=== PATIENT | male | born 1965 | race African-American/Black ===

== ENCOUNTER 2019-05-09 05:03 | Inpatient (IN) ==
[2019-04-27 10:17] LABS: Basophils % 0.3 % (0.0-0.8); Eosinophils # 0.5 10*3/uL (0.0-0.87); Eosinophils % 5.2 % (0.00-10.9); Hematocrit 38.9 VOL% (42.0-52.0); Hemoglobin 13.6 GM/DL (14.0-18.0); Immature Granulocytes % 0.5 %; Immature Granulocytes Absolute 0.05 #; Lymphocytes # 1.9 10*3/uL (1.4-4.0); Lymphocytes % 19.4 % (21.2-54.2); Mean Corpuscular Volume 81.9 FL (87-102); Mean Platelet Volume 10.9 FL (9.6-12.0); Monocytes % 5.8 % (1.7-12.7); Neutrophils % 68.8 % (38.7-73.9); Platelet Count 256 T/CUMM (130-400); Red Blood Count 4.75 MC/CUMM (3.8-5.5); Red Cell Distribution Width 14.5 % (9.3-17.3); White Blood Count 9.6 T/CUMM (4-12)
[2019-04-27 10:31] LABS: Apearance,Urine CLEAR (Clear); Bilirubin,Urine Negative (Negative); Blood, Urine Moderate mg/dL (Negative); Glucose,Urine (UA) 150 mg/dL (Negative); Ketones,Urine Negative (Negative); Mucus,Urine Occasional /LPF (Occasional); Nitrite,Urine Negative (Negative); Protein,Urine Negative; RBC,Urine 1 /HPF (0-4); Urine Color Yellow (Yellow); Urine Urobilinogen < 2.0 EU/DL (0.2-1.0); WBC,Urine <1 /HPF (0-6)
[2019-04-27 10:52] LABS: Calcium 9.8 MG/DL (8.5-10.1); Osmolality,Calculated 282.7 MOS/KG (273-304)
[2019-05-09] MEDS ORDERED: GABAPENTIN 400 MG CAPSULE PO ONE (06:00)
[2019-05-09] MEDS ORDERED: FAMOTIDINE 20 MG TABLET PO ONE (06:00)
[2019-05-09] MEDS ORDERED: ACETAMINOPHEN 500 MG TABLET PO ONE (06:00)
[2019-05-09] MEDS ORDERED: cefTRIAXone 1,000 MG in SYRINGE 1 EACH IV ONE (06:00)
[2019-05-09] MEDS ORDERED: ALVIMOPAN 12 MG CAPSULE PO ONE (06:00)
[2019-05-09] MEDS ORDERED: DIAZEPAM 5 MG TABLET PO ONE (06:00)
[2019-05-09] MEDS ORDERED: FAMOTIDINE 20 MG TABLET ONE (06:30)
[2019-05-09] MEDS ORDERED: cefTRIAXone 1,000 MG VIAL ONE (06:30)
[2019-05-09] MEDS ORDERED: DIAZEPAM 5 MG TABLET ONE (06:30)
[2019-05-09] MEDS ORDERED: ALVIMOPAN 12 MG CAPSULE ONE (06:30)
[2019-05-09] MEDS ORDERED: GABAPENTIN 400 MG CAPSULE ONE (06:30)
[2019-05-09] MEDS ORDERED: ACETAMINOPHEN 500 MG TABLET ONE (06:30)
[2019-05-09] MEDS ORDERED: LACTATED RINGERS 1,000 ML IV SCH (06:30)
[2019-05-09] MEDS ORDERED: ONDANSETRON 4 MG/2 ML VIAL IV PRN ×2 (09:13→10:21)
[2019-05-09] MEDS ORDERED: diphenhydrAMINE 50 MG/1 ML VIAL IV PRN (09:13)
[2019-05-09 09:42] LABS: Apearance,Urine Slightly Hazy (Clear); Bacteria,Urine Occasional /HPF (Few); Bilirubin,Urine Negative (Negative); Blood, Urine Moderate mg/dL (Negative); Glucose,Urine (UA) Negative (Negative); Ketones,Urine Negative (Negative); Mucus,Urine Occasional /LPF (Occasional); Nitrite,Urine Negative (Negative); Protein,Urine Negative; RBC,Urine 4 /HPF (0-4); Squamous Epithelial Cell,Urine Occasional /HPF (0-10); Urine Color Yellow (Yellow); Urine Specific Gravity 1.009 (1.001-1.035); Urine Urobilinogen < 2.0 EU/DL (0.2-1.0); WBC,Urine 2 /HPF (0-6)
[2019-05-09] MEDS ORDERED: SEVOFLURANE 1 UNIT/15 MINUTE INH ONE (09:44)
[2019-05-09] MEDS ORDERED: PROPOFOL 200 MG/20 ML VIAL IV ONE (09:44)
[2019-05-09] MEDS ORDERED: LIDOCAINE 100 MG/5 ML SYRINGE ONE (09:44)
[2019-05-09] MEDS ORDERED: SODIUM CHLORIDE 0.9% 200 ML IV ONE (09:45)
[2019-05-09] MEDS ORDERED: fentaNYL 100 MCG/2 ML VIAL ONE (09:45)
[2019-05-09] MEDS ORDERED: ROCURONIUM 100 MG/10 ML VIAL IV ONE (09:45)
[2019-05-09] MEDS ORDERED: MIDAZOLAM 2 MG/2 ML VIAL ONE (09:45)
[2019-05-09] MEDS ORDERED: ONDANSETRON 4 MG/2 ML VIAL ONE ×2 (09:45→10:17)
[2019-05-09] MEDS ORDERED: PHENYLEPHRINE 10 MG/1 ML VIAL IV ONE (09:45)
[2019-05-09] MEDS ORDERED: NEOSTIGMINE 10 MG/10 ML VIAL ONE (09:45)
[2019-05-09] MEDS ORDERED: PHENYLEPHRINE 1 MG/10 ML SYRINGE IV ONE (09:45)
[2019-05-09] MEDS ORDERED: GLYCOPYRROLATE 0.4 MG/2 ML VIAL ONE ×2 (09:45)
[2019-05-09] MEDS ORDERED: SODIUM CHLORIDE 0.9% 1,000 ML IV ONE (09:46)
[2019-05-09] MEDS: HYDROmorphone PCA 30 MG/30 ML SYRINGE IV SCH (10:00)
[2019-05-09] MEDS: HYDROmorphone 2 MG/1 ML VIAL IV PRN ×2 (10:16→10:35)
[2019-05-09] MEDS ORDERED: HYDROmorphone 2 MG/1 ML VIAL ONE (10:17)
[2019-05-09] MEDS: SODIUM CHLORIDE 0.9% 1,000 ML IV SCH ×2 (11:42→20:21)
[2019-05-09] MEDS: amLODIPine 5 MG TABLET PO SCH (16:28)
[2019-05-09] MEDS: ALVIMOPAN 12 MG CAPSULE PO SCH (21:44)
[2019-05-09] MEDS: metFORMIN 500 MG TABLET PO SCH (21:45)
[2019-05-09] MEDS: ATORVASTATIN 10 MG TABLET PO SCH (21:46)
[2019-05-10 05:14] LABS: Basophils % 0.2 % (0.0-0.8); Hematocrit 35.9 VOL% (42.0-52.0); Hemoglobin 12.5 GM/DL (14.0-18.0); Immature Granulocytes % 0.7 %; Immature Granulocytes Absolute 0.11 #; Lymphocytes # 1.3 10*3/uL (1.4-4.0); Lymphocytes % 8.3 % (21.2-54.2); Mean Corpuscular HGB Conc 34.8 GM/DL (32-36); Mean Corpuscular Volume 82.2 FL (87-102); Mean Platelet Volume 10.9 FL (9.6-12.0); Monocytes % 8.9 % (1.7-12.7); Neutrophils % 81.9 % (38.7-73.9); Platelet Count 282 T/CUMM (130-400); Red Blood Count 4.37 MC/CUMM (3.8-5.5); Red Cell Distribution Width 14.7 % (9.3-17.3); White Blood Count 16.1 T/CUMM (4-12)
[2019-05-10] MEDS: SODIUM CHLORIDE 0.9% 1,000 ML IV SCH (05:31)
[2019-05-10 05:46] LABS: Calcium 8.3 MG/DL (8.5-10.1); Osmolality,Calculated 278.8 MOS/KG (273-304)
[2019-05-10] MEDS ORDERED: LISINOPRIL 20 MG TABLET PO SCH (09:00)
[2019-05-10] MEDS: ALVIMOPAN 12 MG CAPSULE PO SCH ×2 (09:21→21:08)
[2019-05-10] MEDS: metFORMIN 500 MG TABLET PO SCH (09:21)
[2019-05-10] MEDS: HYDROmorphone PCA 30 MG/30 ML SYRINGE IV SCH (11:05)
[2019-05-10] MEDS ORDERED: oxyCODONE/ACETAMINOPHEN 5-325 MG TABLET PO PRN (12:55)
[2019-05-10] MEDS: glyBURIDE 5 MG TABLET PO SCH (17:12)
[2019-05-10] MEDS: amLODIPine 5 MG TABLET PO SCH (17:12)
[2019-05-10] MEDS: oxyCODONE/ACETAMINOPHEN 5-325 MG TABLET PO PRN (17:30)
[2019-05-10] MEDS: ATORVASTATIN 10 MG TABLET PO SCH (21:08)
[2019-05-11 05:11] LABS: Calcium 9.5 MG/DL (8.5-10.1); Osmolality,Calculated 276.5 MOS/KG (273-304)
[2019-05-11] MEDS: ALVIMOPAN 12 MG CAPSULE PO SCH ×2 (08:36→21:30)
[2019-05-11] MEDS: glyBURIDE 5 MG TABLET PO SCH (08:36)
[2019-05-11] MEDS ORDERED: BISACODYL 10 MG SUPP RECTAL ONE (08:41)
[2019-05-11] MEDS ORDERED: MAGNESIUM SULF RIDER 2 GM in PREMIX 1 EACH IV ONE (09:00)
[2019-05-11] MEDS: SODIUM CHLORIDE 0.9% 1,000 ML IV SCH (11:23)
[2019-05-11] MEDS: BACITRACIN OINT 0.9 GM PACK TOP SCH (11:23)
[2019-05-11] MEDS: amLODIPine 5 MG TABLET PO SCH (17:20)
[2019-05-11] MEDS: oxyCODONE/ACETAMINOPHEN 5-325 MG TABLET PO PRN (21:30)
[2019-05-11] MEDS: ATORVASTATIN 10 MG TABLET PO SCH (21:30)
[2019-05-12 06:12] LABS: Calcium 8.9 MG/DL (8.5-10.1); Osmolality,Calculated 278.5 MOS/KG (273-304)
[2019-05-12] MEDS: SODIUM CHLORIDE 0.9% 1,000 ML IV SCH (09:06)
[2019-05-12] MEDS: BACITRACIN OINT 0.9 GM PACK TOP SCH (09:06)
[2019-05-12] MEDS: ALVIMOPAN 12 MG CAPSULE PO SCH (09:07)
[2019-05-12 12:16] VITALS: BP 145/79
== END 2019-05-12 12:30 | disposition designated cancer center or children's hospital (05) | DRG 657 ==
LOC: N.SDSINP 05:03 → N.OR 05:03 → N.SDSINP 09:13 → N.5E 11:17
PROVIDERS: ADMIT Urology; ATTEND Urology